=== PATIENT | male | born 1980 | race African-American/Black ===

== ENCOUNTER 2018-01-24 15:38 | Emergency (ER) | payer SELFPAY ==
[~2018-01-24] VITALS: Ht 175.3 cm; Wt 63.5 kg
[2018-01-24 16:19] VITALS: BP 137/86
--- NOTE | 2018-01-24 18:02 | NUR ---
PT PRESENTS TO ER C/O R HAND PAIN AND SWELLING S/P FALL AT 1500 TODAY. NO VISIBLE DEFORMITIES BUT 3RD DIGIT IS MOST SWOLLEN AND PAINFUL AT CARPAL-METACARPAL JOINT. NO OTHER TRAUMA NOTED. IN ER BED 18.
[2018-01-24] MEDS ORDERED: IBUPROFEN 600 MG TABLET PO ONE ×2 (18:17→18:30)
== END 2018-01-24 20:16 | disposition home or self-care (01) ==
LOC: ER 15:41
DX: S62.622A Displaced fracture of middle phalanx of right middle finger, initial encounter for closed fracture (principal); F17.200 Nicotine dependence, unspecified, uncomplicated; F12.10 Cannabis abuse, uncomplicated; F10.10 Alcohol abuse, uncomplicated; Y90.9 Presence of alcohol in blood, level not specified; Z59.0 Homelessness; V29.9XXA Motorcycle rider (driver) (passenger) injured in unspecified traffic accident, initial encounter; Y93.55 Activity, bike riding; Y92.410 Unspecified street and highway as the place of occurrence of the external cause; Y99.8 Other external cause status
CPT/HCPCS: 29130; 73130; 99283; 99406; A4606; Z7610